=== PATIENT | male | born 1980 | race Caucasian/White ===

== ENCOUNTER 2018-01-25 17:28 | Emergency (ER) | payer OTHER ==
[~2018-01-25] VITALS: Ht 180.3 cm; Wt 83.9 kg
--- NOTE | 2018-01-25 18:25 | ED GENERAL ADULT ---
History of Present Illness General Chief Complaint: ETOH/Drug Related Complaint Stated Complaint: SENT [facility] FOR ALCOHOL DETOX Source: patient Exam Limitations: no limitations Vital Signs & Intake/Output Vital Signs & Intake/Output Vital Signs Date Time Temp Pulse Resp B/P B/P Pulse O2 O2 Flow FiO2 Mean Ox Delivery Rate 01/26 623 96.6 87 18 162/99 01/26 0623 96.6 87 18 162/99 96 Room Air 01/26 0441 97.2 75 18 152/94 01/26 0437 97.2 75 18 152/94 98 Room Air 01/26 0214 98.1 65 18 166/96 01/26 0212 98.1 65 18 166/96 98 Room Air 01/25 2258 98.5 117 18 164/96 01/25 2256 98.5 117 18 164/96 96 Room Air 01/25 2252 97 Room Air 01/25 2036 97.6 112 18 154/97 01/25 2035 97.6 112 18 154/97 99 Room Air 01/25 1732 98.6 116 18 184/98 98 Room Air ED Intake and Output 01/26 0000 01/25 1200 Intake Total Output Total Balance Patient 185 lb Weight Weight Reported by Patient Measurement Method Allergies Coded Allergies: No Known Allergies (01/25/18) Triage Note: 37 YO MALE TO TRIAGE FOR CLEARENCE FOR [facility]. PT STATES HE NORMALLY DRINKS APPROX 12 BEERS A DAY. 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 DENIES SI/HI. Triage Nurses Notes Reviewed? yes Onset: Abrupt Duration: week(s):, constant, continues in ED, getting worse Timing: recent history Injury Environment: home Severity: moderate, severe No Modifying Factors: none HPI: 37-year-old male past medical history of alcohol presents for evaluation requesting alcohol detox. Patient states she has been drinking approximately 12 beers each night for greater than a year. He states that he has been drinking more including hard alcohol over the past 2 or 3 days. His last drink was just prior to arrival he states he drank a pint of whiskey. He denies any drug use. No hallucinations no suicidal ideation. No homicidal ideation. He does state that usually he is able to wAITuntil nighttime to drink except for the past few days. No chest pain shortness of breath. No history of alcohol withdrawal seizures. He is never hospitalized for alcohol detox. He is here to be cleared to go to [facility]. (David Ba) Reconcile Medications No Known Home Medications (Roly CLIFTON,Guy) Past History Travel History Traveled to [place] past 21 day No Medical History Any Pertinent Medical History? 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 No (David Ba) Review of Systems Review of Systems Constitutional: Reports: no symptoms. EENTM: Reports: no symptoms. Respiratory: Reports: no symptoms. Cardiovascular: Reports: no symptoms. GI: Reports: no symptoms. Genitourinary: Reports: no symptoms. Musculoskeletal: Reports: no symptoms. Skin: Reports: no symptoms. Neurological/Psychological: Reports: anxiety. Hematologic/Endocrine: Reports: no symptoms. Immunologic/Allergic: Reports: no symptoms. All Other Systems: Reviewed and Negative (David Ba) Physical Exam Physical Exam General Appearance: well developed/nourished, no apparent distress, alert, awake Head: atraumatic, normal appearance Eyes: Bilateral: normal appearance, PERRL, EOMI. Ears, Nose, Throat: hearing grossly normal Neck: normal inspection, supple, full range of motion Respiratory: normal breath sounds, chest non-tender, no respiratory distress, lungs clear Cardiovascular: normal peripheral pulses, tachycardia Peripheral Pulses: 2+ radial (R), 2+ radial (L) Gastrointestinal: normal bowel sounds, soft, non-tender, no organomegaly Back: normal inspection, normal range of motion, no vertebral tenderness Extremities: normal inspection, normal range of motion, no edema Neurologic/Psych: no motor/sensory deficits, awake, alert, oriented x 3, normal gait, normal mood/affect Skin: intact, normal color, warm/dry Lymphatic: no anterior cervical radha Core Measures ACS in differential dx? No CVA/TIA Diagnosis: No Sepsis Present: No Sepsis Focused Exam Completed? No (David Ba) Progress Differential Diagnoses I considered the following diagnoses in my evaluation of the patient: [Alcohol dependence, alcohol withdrawal, alcohol intoxication, drug intoxication, drug withdrawal] Plan of Care: Orders Procedure Date/time Status Regular Diet 01/26 B Active EKG 01/26 1748 Active Add-on Test (ER Only) 01/25 1747 Active CIWA 01/25 1730 Active URINE DRUG SCREEN FOR ER ONLY 01/25 173 Complete MAGNESIUM 01/25 173 Complete LIPASE 01/25 173 Complete ETHANOL 01/25 1730 Complete COMPREHENSIVE METABOLIC PANEL 01/25 1730 Complete CBC WITHOUT DIFFERENTIAL 01/25 1730 Complete Current Medications Sig/Ole Start time Last Medication Dose Stop Time Status Admin Zolpidem Tartrate 10 MG AT BEDTIME 01/25 2200 AC 01/25 (Ambien) 2199 Laboratory Tests 01/25/181809: Serum Alcohol 253.0 01/25/181809: Anion Gap 17 H, Estimated GFR > 60, BUN/Creatinine Ratio 12.5, Glucose 101 H, Calcium 9.1, Magnesium 2.1, Total Bilirubin 0.7, AST 54, ALT 75 H, Alkaline Phosphatase 141 H, Total Protein 7.7, Albumin 4.7, Globulin 3.0, Albumin/ Globulin Ratio 1.6, Lipase 287, CBC w Diff NO MAN DIFF REQ, RBC 5.44, MCV 92.1, MCH 31.9 H, MCHC 34.6, RDW 13.4, MPV 7.9, Gran % 58.5, Lymphocytes % 33.5, Monocytes % 6.6, Eosinophils % 0.6, Basophils % 0.8, Absolute Granulocytes 5.5, Absolute Lymphocytes 3.1, Absolute Monocytes 0.6, Absolute Eosinophils 0.1, Absolute Basophils 0.1, Urine Opiates Screen < 100, Methadone Screen < 40, Barbiturate Screen < 60, Ur Phencyclidine Scrn < 6.00, Amphetamines Screen 117, U Benzodiazepines Scrn < 85, Urine Cocaine Screen < 50, Urine Cannabis Screen < 5.00 Patient seen and evaluated. He is here requesting alcohol detox and clearance to go to [facility]. He denies any history of withdrawal seizures. Not suicidal or homicidal. We'll check basic labs patient be monitored with CIWA exams. Alcohol level is greater than 250. Patient will likely require an overnight stay in the emergency department. Initial CIWA is 0 as patient is still intoxicated. We'll continue to monitor patient. PT has been resting comfortably in the emergency department without showing any signs or symptoms of withdrawal. We'll continue to monitor patient overnight he will then be transferred to [facility] in the morning. Patient signed out to Dr. Espinoza pending disposition and CIWA. 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 (Mike Gaspar MD) Departure Departure Disposition: STILL A PATIENT Condition: Stable Clinical Impression Primary Impression: Alcohol intoxication Qualifiers: Complication of substance-induced condition: uncomplicated Qualified Code: F10.920 - Alcohol use, unspecified with intoxication, uncomplicated Referrals: Patient Has No Primary Care Dr (PCP/Family) Departure Forms: Customer Survey General Discharge Information (David Ba) Departure Prescriptions: Current Visit Scripts No Known Home Medications PA/ECONOMIST RESEARCH ASSISTANT Co-Sign Statement Statement: ED Attending supervision documentation- x I saw and evaluated the patient. I have also reviewed all the pertinent lab results and diagnostic results. I agree with the findings and the plan of care as documented in the PA's/ECONOMIST RESEARCH ASSISTANT's documentation. [] I have reviewed the ED Record and agree with the PA's/ECONOMIST RESEARCH ASSISTANT's documentation. [] Additions or exceptions (if any) to the PAs/ECONOMIST RESEARCH ASSISTANT's note and plan are summarized below: [] (Guy Espinoza MD) Critical Care Note Critical Care Note Critical Care Time: non-applicable (David Ba)
[2018-01-25 18:26] LABS: ABSOLUTE BASOPHIL COUNT 0.1 /CUMM (0.0-0.2); ABSOLUTE EOSINOPHIL COUNT 0.1 /CUMM (0.0-0.7); ABSOLUTE GRANULOCYTE CT 5.5 /CUMM (1.4-6.5); ABSOLUTE LYMPH COUNT 3.1 /CUMM (1.2-3.4); ABSOLUTE MONOCYTE COUNT 0.6 /CUMM (0.10-0.60); BASOPHIL % 0.8 % (0.0-2.0); EOSINOPHIL % 0.6 % (0-5); GRANULOCYTE % 58.5 % (42.2-75.2); HEMATOCRIT 50.1 % (42-52); MEAN CORPUSCULAR HGB 31.9 PG (27.0-31.0); MEAN CORPUSCULAR HGB CONC 34.6 G/DL (33.0-37.0); MEAN CORPUSCULAR VOLUME 92.1 FL (80.0-94.0); MEAN PLATELET VOLUME 7.9 FL (7.4-10.4); PLATELET COUNT 197 /CUMM (130-400); RBC DISTRIBUTION WIDTH 13.4 % (11.5-14.5); RED BLOOD CELL CT 5.44 /CUMM (4.70-6.10); WHITE BLOOD CELL COUNT 9.4 /CUMM (4.8-10.8)
[2018-01-26 06:23] VITALS: BP 162/99
== END 2018-01-26 07:51 ==
LOC: ERH 17:28
PROVIDERS: Physician Assistant Medical
DX: F10.129 Alcohol abuse with intoxication, unspecified (principal)
CPT/HCPCS: 80307; 93005; 93010; G0480